=== PATIENT | female | born 1970 | race Caucasian/White ===

== ENCOUNTER → 2023-12-20 09:41 | Outpatient (REF) | payer OTHER, SELFPAY | LOC: HWRAD 09:41 | PROVIDERS: ATTENDING PHYSICIAN Nurse Practitioner Adult Health | DX: E01.0 Iodine-deficiency related diffuse (endemic) goiter (principal) | CPT/HCPCS: 76536 ==

== ENCOUNTER → 2023-12-27 10:03 | Outpatient (REF) | payer OTHER, SELFPAY | LOC: HWRCS 10:03 | PROVIDERS: ATTENDING PHYSICIAN Nurse Practitioner Adult Health | DX: I10 Essential (primary) hypertension (principal); Z86.73 Personal history of transient ischemic attack (TIA), and cerebral infarction without residual deficits; R94.31 Abnormal electrocardiogram [ECG] [EKG] | CPT/HCPCS: 93306 ==

== ENCOUNTER → 2024-01-10 09:47 | Outpatient (REF) | payer OTHER, SELFPAY | LOC: HWWDC 09:47 | PROVIDERS: ATTENDING PHYSICIAN Nurse Practitioner Adult Health; REFERRING PHYSICIAN Obstetrics & Gynecology | DX: Z12.31 Encounter for screening mammogram for malignant neoplasm of breast (principal) | CPT/HCPCS: 77063; 77067 ==

== ENCOUNTER → 2025-01-19 14:16 | Outpatient (REF) | payer OTHER, SELFPAY | LOC: HWWDC 14:16 | PROVIDERS: ATTENDING PHYSICIAN Nurse Practitioner Adult Health | DX: Z12.31 Encounter for screening mammogram for malignant neoplasm of breast (principal) | CPT/HCPCS: 77063; 77067 ==